=== PATIENT | male | born 1950 | race Caucasian/White ===

== ENCOUNTER 2016-07-09 11:09 | Emergency (ER) | payer MEDICARE ==
[~2016-07-09] VITALS: Ht 185.4 cm; Wt 89.0 kg
[~2016-07-09 11:09] MED LIST: ATEN1TAB73; CIPR750T10 PO; LISI40TA PO; MAXZ25 PO; RAPA4CAP PO
[2016-07-09 11:14] VITALS: BP 143/83; PULSE 81; RESP 18; TEMP 97.8; O2SAT 98
[2016-07-09] MEDS ORDERED: CIPR-9 PO (12:02)
[2016-07-09] MEDS ORDERED: LISI40TA PO (12:02)
[2016-07-09] MEDS ORDERED: ATEN100T PO (12:02)
[2016-07-09 12:03] VITALS: BP 131/67; PULSE 78; RESP 20; O2SAT 99
[2016-07-09] MEDS ORDERED: RAPA4CAP PO (12:03)
[2016-07-09] MEDS ORDERED: TRIA37.5 PO (12:03)
[2016-07-09 12:14] LABS: AUTOMATED NEUTROPHIL # 12.3 TH/MM3 (1.8-7.7); BASOPHIL % 0.2 % (0.0-2.0); HEMATOCRIT 42.9 % (39.0-51.0); LYMPH % 3.2 % (9.0-44.0); LYMPHOCYTE # 0.4 TH/MM3 (1.0-4.8); MEAN CELL VOLUME 86.6 FL (80.0-100.0); MEAN CORPUSCULAR HEMOGLOBIN 29.4 PG (27.0-34.0); MEAN CORPUSCULAR HGB CONC 33.9 % (32.0-36.0); MONO % 6.1 % (0.0-8.0); NEUT % 90.5 % (16.0-70.0); PLATELET COUNT 119 TH/MM3 (150-450); RED BLOOD COUNT 4.95 MIL/MM3 (4.50-5.90); RED CELL DISTRIBUTION WIDTH 11.9 % (11.6-17.2); WHITE BLOOD COUNT 13.5 TH/MM3 (4.0-11.0)
--- NOTE | 2016-07-09 12:15 | PD ---
HPI Chief Complaint: Abdominal Pain Time Seen by Provider: 11:35 Travel History International Travel<30 days: No Contact w/Intl Traveler<30days: No Traveled to known affect area: No History of Present Illness HPI This 66-year-old man who presents to the emergency department complaining of inability to urinate and lower abdominal discomfort ongoing for several days. He's had just trickles of urine. He was seen in an urgent care yesterday who noted blood in his urine and put him on Cipro. He's had prostatitis in the past. He is a known enlarged prostate. He follows with Dr. Bruno. Symptoms were much worse today and so he came to the emergency department. History Past Medical History Narrative Medical BPH, prostatitis Social History Alcohol Use: Yes (Soc.) Tobacco Use: No Allergies-Medications (Allergen,Severity, Reaction): Coded Allergies: No Known Allergies (Verified , 07/09/16) Reported Meds & Prescriptions Reported Meds & Active Scripts Active Reported Triamterene-Hydrochlorothiazide 37.5-25 Mg Tab 1 Tab PO DAILY Rapaflo (Silodosin) 4 Mg Cap 4 Mg PO DAILY Lisinopril 40 Mg Tab 40 Mg PO DAILY Cipro (Ciprofloxacin HCl) 500 Mg Tab 500 Mg PO BID Atenolol 100 Mg Tab 100 Mg PO DAILY Review of Systems Except as stated in HPI: all other systems reviewed are Neg Physical Exam Narrative GENERAL: 66 year-old man, uncomfortable, nontoxic. SKIN: Warm and dry. CARDIOVASCULAR: Regular rate and rhythm. No murmur appreciated. RESPIRATORY: No accessory muscle use. Clear to auscultation. Breath sounds equal bilaterally. GASTROINTESTINAL: Abdomen flat and soft. Suprapubic tenderness. MUSCULOSKELETAL: No obvious deformities. No clubbing. No cyanosis. No edema. NEUROLOGICAL: Awake and alert. No obvious cranial nerve deficits. Motor grossly within normal limits. Normal speech. PSYCHIATRIC: Appropriate mood and affect; insight and judgment normal. Data Data Last Documented VS Vital Signs Date Time Temp Pulse Resp B/P Pulse Ox O2 Delivery O2 Flow Rate FiO2 07/09/16 12:03 78 20 131/67 99 07/09/16 11:14 97.8 Orders Complete Blood Count With Diff (07/09/16 11:50) Basic Metabolic Panel (Bmp) (07/09/16 11:50) Urinalysis - C+S If Indicated (07/09/16 11:50) Urine Culture (07/09/16 12:05) Labs Laboratory Tests Test 07/09/16 12:05 White Blood Count 13.5 TH/MM3 Red Blood Count 4.95 MIL/MM3 Hemoglobin 14.5 GM/DL Hematocrit 42.9 % Mean Corpuscular Volume 86.6 FL Mean Corpuscular Hemoglobin 29.4 PG Mean Corpuscular Hemoglobin 33.9 % Concent Red Cell Distribution Width 11.9 % Platelet Count 119 TH/MM3 Mean Platelet Volume 9.5 FL Neutrophils (%) (Auto) 90.5 % Lymphocytes (%) (Auto) 3.2 % Monocytes (%) (Auto) 6.1 % Eosinophils (%) (Auto) 0.0 % Basophils (%) (Auto) 0.2 % Neutrophils # (Auto) 12.3 TH/MM3 Lymphocytes # (Auto) 0.4 TH/MM3 Monocytes # (Auto) 0.8 TH/MM3 Eosinophils # (Auto) 0.0 TH/MM3 Basophils # (Auto) 0.0 TH/MM3 CBC Comment DIFF FINAL Differential Comment Urine Color YELLOW Urine Turbidity CLEAR Urine pH 6.0 Urine Specific [place] 1.016 Urine Protein NEG mg/dL Urine Glucose (UA) NEG mg/dL Urine Ketones 15 mg/dL Urine Occult Blood TRACE Urine Nitrite NEG Urine Bilirubin NEG Urine Leukocyte Esterase NEG Urine RBC 4-9 /hpf Urine WBC 9-14 /hpf Urine WBC Clumps OCC Urine Squamous Epithelial 0-5 /hpf Cells Urine Bacteria FEW /hpf Urine Mucus MOD /lpf Microscopic Urinalysis Comment CATH-CULTURE IND Sodium Level 137 MEQ/L Potassium Level 3.9 MEQ/L Chloride Level 101 MEQ/L Carbon Dioxide Level 25.0 MEQ/L Anion Gap 11 MEQ/L Blood Urea Nitrogen 24 MG/DL Creatinine 1.40 MG/DL Estimat Glomerular Filtration 51 ML/MIN Rate Random Glucose 136 MG/DL Calcium Level 8.8 MG/DL [facility] Medical Decision Making Medical Screen Exam Complete: Yes Emergency Medical Condition: Yes Interpretation(s) LABS: CBC remarkable for mild leukocytosis. BMP remarkable for minimally elevated BUN and creatinine Differential Diagnosis Urinary retention, cystitis, prostatitis, other Narrative Course Medical decision-making 66-year-old man who presents to the emergency department with acute urinary retention. Place a Murphy catheter the bedside with 1200 mL's of urine out. I prostatitis in the past. We'll check his creatinine, urine, switch to leg bag and outpatient follow-up with urology. Procedures Procedure Narrative Murphy catheter insertion: Penis was prepped with Betadine. 16 Turkish Murphy catheter was inserted under sterile technique. Patient tolerated well. 1200 mL's of dark yellow urine came out. Patient had relief of symptoms. Diagnosis Primary Impression: Urinary retention due to benign prostatic hyperplasia Patient Instructions: Murphy Catheter Placement and Care (ED), General Instructions Additional Instructions: Continue use of leg bag and Murphy catheter as discussed. Follow-up with your urologist Tuesday as scheduled. Return to the emergency department for any new or worsening symptoms. Med/Other Pt SpecificInfo: No Change to Meds Disposition: 01 DISCHARGE HOME Condition: Stable Morgan Lundberg MD Jul 09, 2016 12:15
[2016-07-09 12:16] LABS: BLOOD, URINE TRACE (NEG); GLUCOSE,URINE NEG (NEG); HEMO FLAGS DIFF FINAL; KETONE, URINE 15 mg/dL (NEG); NITRITE,URINE NEG (NEG)
[2016-07-09 12:17] LABS: URINE COLOR YELLOW (YELLW/STRAW)
[2016-07-09 12:22] LABS: MUCUS URINE MOD /lpf (OCC)
[2016-07-09 12:23] LABS: POTASSIUM 3.9 MEQ/L (3.5-5.1)
[2016-07-09 12:24] LABS: BACTERIA, URINE FEW /hpf; COMMENT (UR) CATH-CULTURE IND; CULTURE IF INDICATED CATH CULTURE IND; SQUAMOUS EPITHELIAL CELL URINE 0-5 /hpf (0-5)
== END 2016-07-09 13:09 | disposition home or self-care (01) ==
LOC: PHED 11:09
DX: N40.1 Benign prostatic hyperplasia with lower urinary tract symptoms (principal); R33.8 Other retention of urine; R82.99 Other abnormal findings in urine
CPT/HCPCS: 51702; 80048; 81001; 85025; 87086

== ENCOUNTER 2016-07-15 18:59 | Emergency (ER) | payer MEDICARE ==
[~2016-07-15] VITALS: Ht 185.4 cm; Wt 87.5 kg
[~2016-07-15 18:59] MED LIST changes: +ATEN100T PO; -ATEN1TAB73; +CIPR-9 PO; -CIPR750T10 PO; -MAXZ25 PO; +TRIA37.5 PO
[2016-07-15 19:43] VITALS: BP 155/74; PULSE 74; RESP 18; TEMP 99.2; O2SAT 99
[2016-07-15 20:23] VITALS: BP 155/74; PULSE 74; RESP 18; TEMP 99.2; O2SAT 99
--- NOTE | 2016-07-15 20:47 | PD ---
HPI Chief Complaint: Complaint Time Seen by Provider: 20:33 Travel History International Travel<30 days: No Contact w/Intl Traveler<30days: No Traveled to known affect area: No History of Present Illness HPI Patient is a 66-year-old male with history of BPH and prostatitis, return to emergency room with complaints of acute urinary retention. Patient reports that he was seen on Tuesday morning as he was unable to urinate. A Murphy catheter was placed at that time, patient was seen by his urologist Dr. Montes. Patient reports that his Murphy catheter was removed around 8:30 this morning, reports that he was able to void minimally this morning but by tonight , he was unable to urinate. Patient here for Murphy catheter placement. PFSH Past Medical History Blood Disorders: No Cancer: No Cardiovascular Problems: Yes (HTN) Endocrine: No Genitourinary: No Hypertension: Yes Immune Disorder: No Musculoskeletal: Yes Neurologic: No Psychiatric: No Respiratory: Yes Sleep Apnea: Yes Past Surgical History Abdominal Surgery: Yes (hernia) Other Surgery: Yes (Partial colectomy ) Social History Alcohol Use: Yes (Soc.) Tobacco Use: No Substance Use: No Allergies-Medications (Allergen,Severity, Reaction): Coded Allergies: No Known Allergies (Verified , 07/15/16) Reported Meds & Prescriptions Reported Meds & Active Scripts Active Reported Triamterene-Hydrochlorothiazide 37.5-25 Mg Tab 1 Tab PO DAILY Rapaflo (Silodosin) 4 Mg Cap 4 Mg PO DAILY Lisinopril 40 Mg Tab 40 Mg PO DAILY Cipro (Ciprofloxacin HCl) 500 Mg Tab 500 Mg PO BID Atenolol 100 Mg Tab 100 Mg PO DAILY Review of Systems General / Constitutional: No: Fever Eyes: No: Visual changes HENT: No: Headaches Cardiovascular: No: Chest Pain or Discomfort Respiratory: No: Shortness of Breath Gastrointestinal: No: Abdominal Pain Genitourinary: Positive: Decreased Urinary Output, Other (urinary retention), No: Dysuria Musculoskeletal: No: Pain Skin: No Rash Neurologic: No: Weakness Psychiatric: No: Depression Endocrine: No: Polydipsia Hematologic/Lymphatic: No: Easy Bruising Physical Exam Narrative GENERAL: mild distress SKIN: Warm and dry. HEAD: Atraumatic. Normocephalic. EYES: Pupils equal and round. No scleral icterus. No injection or drainage. ENT: No nasal bleeding or discharge. Mucous membranes pink and moist. NECK: Trachea midline. No JVD. CARDIOVASCULAR: Regular rate and rhythm. No murmur appreciated. RESPIRATORY: No accessory muscle use. Clear to auscultation. Breath sounds equal bilaterally. GASTROINTESTINAL: Abdomen soft, tender to lower abdomen with no rebound or guarding MUSCULOSKELETAL: No obvious deformities. No clubbing. No cyanosis. No edema. NEUROLOGICAL: Awake and alert. No obvious cranial nerve deficits. Motor grossly within normal limits. Normal speech. PSYCHIATRIC: Appropriate mood and affect; insight and judgment normal. Data Data Last Documented VS Vital Signs Date Time Temp Pulse Resp B/P Pulse Ox O2 Delivery O2 Flow Rate FiO2 07/15/16 20:23 99.2 74 18 155/74 99 Orders Urinary Catheter Insert/Apply (07/15/16 20:45) [facility] Medical Decision Making Medical Screen Exam Complete: Yes Emergency Medical Condition: Yes Interpretation(s) Vital Signs Date Time Temp Pulse Resp B/P Pulse Ox O2 Delivery O2 Flow Rate FiO2 07/15/16 20:23 99.2 74 18 155/74 99 07/15/16 19:43 99.2 74 18 155/74 99 Differential Diagnosis acute urinary retention, bph Narrative Course 66 year old male who returns to ER for evaluation of acute urinary retention. Pt had a FC placed on tuesday and went to his urologist today and had FC removed around 8:30am this morning. Patient reports that he was able to pass minimal urine but feels distended tonight and is unable to void. pt here for FC placement. He currently is on cipro for treatment of prostatitis. A Murphy catheter was placed and oriented 600 cc of urine was drained. Patient will follow-up with his urologist first thing in the morning for further management of his BPH and urinary retention Diagnosis Primary Impression: Urinary retention due to benign prostatic hyperplasia Patient Instructions: General Instructions Additional Instructions: Please take all medications as prescribed by your urologist Please call your urologist first thing in the morning for earliest follow-up appointment Return to emergency room as needed Disposition: 01 DISCHARGE HOME Condition: Stable Suyapa Oakley DO Jul 15, 2016 20:47
[2016-07-15 21:19] VITALS: BP 140/78
== END 2016-07-15 21:20 | disposition home or self-care (01) ==
LOC: PHED 18:59
DX: N40.1 Benign prostatic hyperplasia with lower urinary tract symptoms (principal); I10 Essential (primary) hypertension
CPT/HCPCS: 51702

== ENCOUNTER → 2016-08-10 | Day surgery (SDC) | payer MEDICARE ==
[~2016-08-10] MED LIST changes: +BELLADONNA ALKALOIDS/OPIUM 60 MG SUPP RECTAL ONE; +GENTAMICIN SULFATE 80 MG/2 ML VIAL ONE; +LACTATED RINGER'S 1000 ML INJ 1,000 ML ONE; +MIDAZOLAM HCL 2 MG/2 ML VIAL ONE; +NS 100 ML (PAB BAG) 100 ML IV ONE; +ONDANSETRON HCL 4 MG/2 ML VIAL IV PUSH ONE; +PROPOFOL 200 MG/20 ML AMP IV ONE; +ceFAZolin INJ 1,000 MG VIAL ONE
--- NOTE | 2016-08-10 11:03 | TN ---
cc: ESTHER CORLEY M.D. DATE OF SURGERY 08/10/2016 PREOPERATIVE DIAGNOSES 1. Urinary retention (ICD-10 code R33.8). 2. Benign prostatic hyperplasia(ICD-10 code N40.1). PROCEDURE Transurethral resection of the prostate (TURP) (CPT code 77144). INDICATION Mr. Carey is a 66-year-old gentleman who has had acute urinary retention and has failed multiple trials of voiding despite pharmacologic intervention, presents now for definitive treatment. FINDINGS Normal urethra. There is some mild pendulous urethral stricture. The prostatic urethra shows trilobar hyperplasia with an elevated obstructed and very long prostatic urethra. The ureteral orifice is normal in size, shape and position, effluxing clear urine. There are some mild chronic catheter changes. There is no tumor, no suspicious mucosa, calcifications, diverticula or other abnormalities. There was mild trabeculation of the bladder. PROCEDURE The procedure as well as risks and benefits were explained to the patient and informed consent was obtained. The patient was taken to the major operative theater where he was placed in supine position. The patient was identified as well as the operative site. [place] time-out was performed in standard fashion. At this time general anesthetic and prophylactic intravenous antibiotics consisting of gentamicin 80 mg and Ancef 1 gram were administered. After adequate anesthetic, he was placed in low dorsal lithotomy position with mild Trendelenburg and prepped and draped in the usual sterile fashion. At this time a 22.5 [place] cystoscope with a 30-degree lens was inserted into the urethra and bladder with the above findings. The cystoscope was then removed and a 27-[place] Casas resectoscope with a right-angle bladder loop was placed under direct vision into the bladder. Using normal saline and the Gyrus System a transurethral resection of the prostate was performed in the standard fashion, first the median lobe was resected and then circumferentially the bladder neck and then more distally to the mid and apical portion of the prostatic urethra. Care was taken not to resect distal to the proximal verumontanum and this was kept in vision the entire time. Hemostasis was achieved throughout the case using the coagulation mode of the electrocautery. At this time, after an adequate channel had been developed, care was taken to inspect the sphincter as well as the prostatic fossa. There was no evidence of any perforation. The bladder neck was inspected as well as the bladder itself. The ureteral orifice showed no evidence of any incidental damage to them or the bladder. At this time a Ellik evacuator was used to remove the prostate chips which were sent for final pathological evaluation. After again confirming hemostasis, the resectoscope was removed and pressure was placed on the dome of the bladder where there was an excellent stream of clear fluid. At this time a 24-[place] three-way hematuria catheter was placed without difficulty into the bladder and 30 cc of sterile water was insufflated into the balloon and placed to straight drain again with clear efflux of fluid. At this time the irrigation port was capped and a belladonna and opioid suppository was placed per rectum. The patient was then placed back in the supine position and a Murphy catheter was placed to straight drain to a leg bag. The patient emerged from anesthetic without difficulty, was transferred to the recovery room in stable condition to be discharged home when criteria is met. There are no obvious complications. MD JAYSON Martinez/[place] /9:57 AM /10:54 AM
== END | disposition home or self-care (01) ==
LOC: ESDC 06:13
PROVIDERS: ATTEND Urology
DX: R33.8 Other retention of urine (principal); N40.1 Benign prostatic hyperplasia with lower urinary tract symptoms
CPT/HCPCS: 00914; 52601; 88305; J0690; J1580; J2250; J2405; J3010; J7120